=== PATIENT | female | born 2000 | race Hispanic/Latino ===

== ENCOUNTER 2024-08-03 21:35 | Emergency (ER) | payer OTHER, MEDICAID ==
[2024-08-03 23:31] LABS: Pregnancy Test - Urine (BHCG) POSITIVE (Negative); Pregu Control Background? CLEAR/WHITE (CLR/WHITE); Pregu Control Bar Appear? YES (CONTROL BAR); Specific Gravity 1.015 (1.002-1.036)
[2024-08-03 23:32] LABS: Bilirubin Negative (Negative); Blood, Urine Negative (Negative); Glucose, Urine (Dipstick) Negative (Negative); Ketone, Urine Negative (Negative); Leukocyte Trace (Negative); Nitrite Negative (Negative); Protein, Urine (Dipstick) Negative (Neg-Trace); Specific Gravity, Urine 1.015 (1.005-1.030); Urobilinogen 0.2 mg/dL (Less than 2)
[2024-08-03 23:34] LABS: CAUTI Indications for Culture Pregnancy; Clarity Hazy (Clear); RBC/HPF None Seen HPF (0-3)
[2024-08-03 23:35] LABS: Bacteria/HPF 1+ HPF (None Seen)
[2024-08-03 23:36] LABS: Urine Culture Reflex Yes Yes
== END 2024-08-04 00:14 | disposition home or self-care (01) ==
LOC: MADERS 21:35
DX: O99.891 Other specified diseases and conditions complicating pregnancy (principal); R82.71 Bacteriuria; Z3A.01 Less than 8 weeks gestation of pregnancy
CPT/HCPCS: 81001; 81025; 87086; 99284